=== PATIENT | male | born 1990 | race Caucasian/White ===

== ENCOUNTER 2019-05-20 05:37 | Emergency (ER) | payer SELFPAY ==
[2019-05-20] MEDS ORDERED: PROMETHAZINE HCL 25 MG TABLET PO ONE (05:47)
--- NOTE | 2019-05-20 05:51 | Emergency Department Record ---
History of Present Illness - General Chief Complaint: General Stated Complaint: NAUSEA,LUMPS ON CHEST HURT Time Seen by Provider: 05/20/19 05:46 Source: Patient Mode of Arrival: Ambulatory Limitations: No limitations - History of Present Illness Initial comments: 28 yo male presents to ED for evaluation of nausea symptoms "for months", denies vomiting or abdominal pain symptoms. Patient denies fevers, chills, cough, ore recent illness. Patient denies health problems at his baseline. Patient also reports "lumps on my chest that I've had all my life are hurting". Patient has not taken anything for his pain symptoms. Onset/Timin -: Days(s) Consistency: Constant Improves with: None Worsens with: None Associated Symptoms: Denies other symptoms Treatments Prior to Arrival: None - Мария Coma Scale Eye Response: (4) Open spontaneously Motor Response: (6) Obeys commands Verbal Response: (5) Oriented Мария Total: 15 - Related Data Previous Rx's Medication Instructions Recorded Promethazine HCl [Phenergan] 25 mg PO Q8H PRN #15 tablet 05/20/19 Allergies Allergy/AdvReac Type Severity Reaction Status Date / Time No Known Drug Allergies Allergy Verified 05/20/19 05:55 Review of Systems Constitutional: Denies: Chills, Fever, Malaise, Night sweats Eyes: Denies: Eye discharge, Eye pain ENT: Denies: Congestion, Ear pain, Epistaxis Respiratory: Denies: Cough, Dyspnea Cardiovascular: Denies: Chest pain, Dyspnea on exertion Endocrine: Denies: Fatigue, Heat or cold intolerance Gastrointestinal: Reports: Nausea. Denies: Abdominal pain, Vomiting Genitourinary: Denies: Incontinence, Retention Musculoskeletal: Denies: Arthralgia, Back pain, Gout, Joint swelling Skin: Denies: Bruising, Change in color Neurological: Denies: Abnormal gait, Confusion, Headache, Seizure Psychiatric: Denies: Anxiety Hematological/Lymphatic: Denies: Anemia, Blood Clots Physical Exam - General General Appearance: Alert, Oriented x3, Cooperative, Mild distress Limitations: No limitations - Head Head exam: Atraumatic, Normocephalic, Normal inspection Head exam detail: negative: Abrasion, Contusion, Garcias's sign, General tenderness, Hematoma, Laceration - Eye Eye exam: Normal appearance. negative: Conjunctival injection, Periorbital swelling, Periorbital tenderness, Scleral icterus - ENT Ear exam: negative: Auricular hematoma, Auricular trauma Nasal Exam: negative: Active bleeding, Discharge, Dried blood, Foreign body Mouth exam: negative: Drooling, Laceration, Muffled voice, Tongue elevation - Neck Neck exam: Normal inspection. negative: Meningismus, Tenderness - Respiratory Respiratory exam: Chest wall tenderness ((2) moveable lipomas to the chest wall on examination). negative: Rales, Respiratory distress, Rhonchi, Stridor - Cardiovascular Cardiovascular Exam: Regular rate, Normal rhythm, Normal heart sounds - GI/Abdominal GI/Abdominal exam: Soft. negative: Rebound, Rigid, Tenderness - Rectal Rectal exam: Deferred - exam: Deferred - Extremities Extremities exam: Normal inspection. negative: Pedal edema, Tenderness - Back Back exam: Denies: CVA tenderness (R), CVA tenderness (L) - Neurological Neurological exam: Alert, Normal gait, Oriented X3 - Psychiatric Psychiatric exam: Normal affect, Normal mood - Skin Skin exam: Normal color. negative: Abrasion Type of lesion: negative: abrasion Course Vital Signs 05/20/19 05:43 Temperature 98.6 F Pulse Rate [ 75 Left] Respiratory 16 Rate Blood Pressure 127/82 [Left Arm] Pulse Ox 96 - Reevaluation(s) Reevaluation #1: 05/20/19 06:24 Patient reports that his nausea symptoms have resolved, reports that he is feeling better. Patient appears stable for discharge at this time with Phenergan as needed for recurrent nausea symptoms. Recommended surgical consultation for lipomas if pain/irritation symptoms c ontinue. Disposition Disposition: Discharge Clinical Impression: Nausea, Lipoma of chest wall Disposition: Home, Self-Care Condition: (2) Stable Instructions: Lipoma (ED) Additional Instructions: Return to ED if your symptoms worsen or if you have any concerns. Phenergan, ibuprofen as directed. Follow-up with your family doctor in 3-5 days as directed. Prescriptions: Promethazine HCl [Phenergan] 25 mg PO Q8H PRN #15 tablet PRN Reason: Nausea/Vomiting Forms: Patient Portal Access Time of Disposition: 06:26 Quality - Quality Measures Quality Measures: N/A - Blood Pressure Screening Does Patient Have Any of the Following: No Blood Pressure Classification: Pre-Hypertensive BP Reading Systolic Measurement: 127 Diastolic Measurement: 82 Screening for High Blood Pressure: < Pre-Hypertensive BP, F/U Documented > [[id number]] Pre-Hypertensive Follow-up Interventions: Referral to alternative/primary care provider.
== END 2019-05-20 06:32 | disposition home or self-care (01) ==
LOC: ER 05:37
DX: R11.0 Nausea (principal); D17.1 Benign lipomatous neoplasm of skin and subcutaneous tissue of trunk; F17.210 Nicotine dependence, cigarettes, uncomplicated
CPT/HCPCS: 99283; Q0170